=== PATIENT | female | born 1970 | race Caucasian/White ===

== ENCOUNTER 2019-07-24 16:40 | Outpatient (CLI) | payer BC ==
--- NOTE | 2019-07-24 17:15 | ULT ---
EXAM: Right lower extremity venous Doppler PROVIDED CLINICAL HISTORY: Edema FINDINGS: Grayscale and color Doppler sonography with spectral analysis was performed of the right common femor al, femoral, popliteal, posterior tibial, greater saphenous and profunda femoral veins. The evaluated venous structures demonstrate a normal sonographic appearance. IMPRESSION: No sonographic evidence for right lower extremity deep venous thrombosis.
== END 2019-07-24 16:41 | disposition home or self-care (01) ==
LOC: ULT 16:40
PROVIDERS: ATTEND Family Medicine
DX: R60.9 Edema, unspecified (principal)

== ENCOUNTER 2025-03-10 08:26 | Outpatient (CLI) | payer OTHER | END 2025-03-10 08:27 | disposition home or self-care (01) | LOC: SCSMRI 08:26 | PROVIDERS: ATTEND Family Medicine | DX: S89.91XD Unspecified injury of right lower leg, subsequent encounter (principal); M85.861 Other specified disorders of bone density and structure, right lower leg; Z98.890 Other specified postprocedural states ==